=== PATIENT | female | born 1985 | race Caucasian/White ===

== ENCOUNTER 2021-07-08 20:03 | Emergency (ER) | payer BC ==
[~2021-07-08] VITALS: Ht 167.6 cm; Wt 66.7 kg
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
[2021-07-08] MEDS ORDERED: GELATIN SPONGE,ABSORBABLE 1 SPONGE SPONGE TP ONE ×2 (20:40→21:00)
[2021-07-08] MEDS ORDERED: TDAP [DIPH/PERTUSSIS/TET] 0.5 ML VIAL IM ONE ×2 (21:00→21:02)
[2021-07-08 21:32] VITALS: BP 124/76
--- NOTE | 2021-07-08 21:32 | NUR ---
PT OK TO DISCHARGE PER LIEN MCGOVERN. Patient discharged to home in stable condition. Written and verbal after care instructions given. Patient verbalizes understanding of instruction.Patient is awake and alert to self, day, and place. PT ambulatory with a steady gait
== END 2021-07-08 21:33 | disposition home or self-care (01) ==
LOC: ER 20:08
DX: S00.83XA Contusion of other part of head, initial encounter (principal); S16.1XXA Strain of muscle, fascia and tendon at neck level, initial encounter; R58 Hemorrhage, not elsewhere classified; Y04.2XXA Assault by strike against or bumped into by another person, initial encounter; Y93.89 Activity, other specified; Y92.89 Other specified places as the place of occurrence of the external cause; Y99.8 Other external cause status
CPT/HCPCS: 90715